=== PATIENT | male | born 1985 | race African-American/Black ===

== ENCOUNTER → 2018-08-25 | Outpatient (CLI) | payer OTHER ==
[2018-08-25 18:46] LABS: APPEARANCE,URINE CLEAR; BILIRUBIN,URINE NEGATIVE (NEGATIVE); COLOR,URINE YELLOW; GLUCOSE, URINE NEGATIVE (NEGATIVE); KETONES,URINE NEGATIVE (NEGATIVE); LEUKOCYTE ESTERASE,URINE NEGATIVE (NEGATIVE); NITRITE,URINE NEGATIVE (NEGATIVE); PROTEIN,URINE NEGATIVE (NEGATIVE); URINE SPECIFIC GRAVITY 1.014
[2018-08-25 20:02] LABS: CHLAM PCR NOT DETECTED (NOT DETECT); GON PCR NOT DETECTED (NOT DETECT)
== END ==
LOC: LAB 18:23
PROVIDERS: ATTEND Nurse Practitioner Family
DX: N34.2 Other urethritis (principal)
CPT/HCPCS: 81001; 87086; 87491; 87591

== ENCOUNTER 2018-08-31 20:50 | Emergency (ER) | payer OTHER ==
[2018-08-31 21:04] VITALS: BP 129/81
[2018-08-31 22:05] LABS: APPEARANCE,URINE CLEAR; BILIRUBIN,URINE NEGATIVE (NEGATIVE); COLOR,URINE YELLOW; GLUCOSE, URINE NEGATIVE (NEGATIVE); KETONES,URINE NEGATIVE (NEGATIVE); LEUKOCYTE ESTERASE,URINE NEGATIVE (NEGATIVE); NITRITE,URINE NEGATIVE (NEGATIVE); PROTEIN,URINE NEGATIVE (NEGATIVE); URINE SPECIFIC GRAVITY 1.015
--- NOTE | 2018-08-31 22:09 | ER Document Report ---
ED General - General Chief Complaint: Pain With Urination Stated Complaint: PAINFUL URINATION Time Seen by Provider: 08/31/18 21:40 Notes: Patient is a 33-year-old male without chronic medical problems, does have a history of pulmonary emboli in the past who presents with 3 weeks of intermittent dysuria. The patient has been seen both at the health department and urgent care, has been tested for urinary tract infections and sexually transmitted infections but she reports the results of which were normal. He states that he has been treated with 2 courses of antibiotics including doxycycline and amoxicillin without relief of his dysuria. He denies any penile or testicular discomfort, stating that the pain is only present with urination. Nothing seems to improve or worsen his symptoms. He denies a history of similar symptoms in the past. Denies fever or constitutional symptoms. TRAVEL OUTSIDE OF THE [place] IN LAST 30 DAYS: No - Related Data Allergies/Adverse Reactions: No Known Allergies Allergy (Unverified 05/16/17 15:58) Past Medical History - General Information source: Patient - Social History Smoking Status: Former Smoker Chew tobacco use (# tins/day): Yes Frequency of alcohol use: Social Drug Abuse: None Lives with: Spouse/Significant other Family History: Reviewed & Not Pertinent Patient has suicidal ideation: No Patient has homicidal ideation: No Renal/ Medical History: Denies: Hx Peritoneal Dialysis Review of Systems - Review of Systems Notes: Constitutional: Negative for fever. HENT: Negative for sore throat. Eyes: Negative for visual changes. Cardiovascular: Negative for chest pain. Respiratory: Negative for shortness of breath. Gastrointestinal: Negative for abdominal pain, vomiting or diarrhea. Genitourinary: Positive for dysuria. Musculoskeletal: Negative for back pain. Skin: Negative for rash. Neurological: Negative for headaches, weakness or numbness. 10 point ROS negative except as marked above and in HPI. Physical Exam - Vital signs Vitals: Temp Pulse Resp BP Pulse Ox 98.5 F 90 16 129/81 H 96 08/31/18 21:01 08/31/18 21:01 08/31/18 21:01 08/31/18 21:01 08/31/18 21:01 Interpretation: Normal Notes: PHYSICAL EXAMINATION: GENERAL: Well-appearing, well-nourished and in no acute distress. HEAD: Atraumatic, normocephalic. EYES: sclera anicteric, conjunctiva are normal. ENT: Moist mucous membranes. NECK: Normal range of motion LUNGS: Normal work of breathing HEART: 2+ radial pulses bilaterally : There appears to be an unrepaired anterior hypospadias. Uncircumcised penis. No epididymal tenderness. No testicular tenderness. Positive cremasteric reflex bilaterally. EXTREMITIES: no pitting or edema. No cyanosis. NEUROLOGICAL: No focal neurological deficits. Moves all extremities spontaneously and on command. PSYCH: Normal mood, normal affect. SKIN: Warm, Dry, normal turgor, no rashes or lesions noted. Course - Re-evaluation Re-evalutation: 08/31/18 22:06 Patient presents with 3 weeks of intermittent dysuria. He has had multiple outpatient urinalysis is as well as STI testing all of which have been unremarkable. He is active and treated with both amoxicillin and doxycycline with no significant relief of his symptoms. Patient on exam actually appears to have anterior hypospadias that has gone untreated. Patient states that his anatomy has always appeared this way but he has never sought treatment with the urologist. I suspect that this may be the cause of his symptoms, have advised close outpatient urology follow-up. Urinalysis and STI testing has been repeated here and I do not anticipate an infectious etiology given repeated previous normal tests as well as multiple courses of antibiotics without improvement. At this time will discharge with return precautions and follow-up recommendations. Verbal discharge instructions given a the bedside and opportunity for questions given. Medication warnings reviewed. Patient is in agreement with this plan and has verbalized understanding of return precautions and the need for primary care follow-up in the next 24-72 hours. - Vital Signs Vital signs: Temp Pulse Resp BP Pulse Ox 98.5 F 90 16 129/81 H 96 08/31/18 21:01 08/31/18 21:01 08/31/18 21:01 08/31/18 21:01 08/31/18 21:01 - Laboratory Laboratory results interpreted by me: 08/31/18 21:50 Urine Urobilinogen 2.0 H Discharge - Discharge Clinical Impression: Hypospadias, penile, Dysuria Condition: Good Disposition: HOME, SELF-CARE Additional Instructions: Please follow-up with urology at your earliest ability as your exam is suggestive of uncorrected hypospadias. Your previous urine and STI testing has been normal. Your urinalysis study tonight is normal as well. You will be contacted if your studies tonight are abnormal. Please return if you develop fever, worsening pain with urination, abdominal pain, or any other symptoms that are worrisome to you. Referrals: EMELYN PANDEY, ASSISTANT PRINCIPAL [Primary Care Provider] - Follow up as needed
[2018-08-31 23:29] LABS: CHLAM PCR NOT DETECTED (NOT DETECT); GON PCR NOT DETECTED (NOT DETECT)
== END 2018-08-31 22:20 | disposition home or self-care (01) ==
LOC: ER 20:50
DX: Q54.1 Hypospadias, penile (principal); R30.0 Dysuria
CPT/HCPCS: 81001; 87086; 87491; 87591; 99283

== ENCOUNTER 2019-02-24 15:59 | Emergency (ER) | payer OTHER ==
[2019-02-24 16:07] VITALS: BP 122/77
== END 2019-02-24 18:40 | disposition left against medical advice (07) ==
LOC: ER 15:59
DX: Z53.21 Procedure and treatment not carried out due to patient leaving prior to being seen by health care provider (principal); M79.659 Pain in unspecified thigh

== ENCOUNTER 2019-02-25 11:48 | Emergency (ER) | payer OTHER ==
--- NOTE | 2019-02-25 12:14 | ER Document Report ---
ED Medical Screen (RME) - General Chief Complaint: Leg Pain Stated Complaint: LEG PAIN Time Seen by Provider: 02/25/19 12:10 Primary Care Provider: EMELYN PANDEY NP [Primary Care Provider] - Follow up as needed TRAVEL OUTSIDE OF THE [place] IN LAST 30 DAYS: No - HPI Notes: 02/25/19 12:13 Patient is a 34-year-old male with a history of DVTs (he supposed to be on Xarelto, but has not been taking it for 1 year) who presents complaining of left medial upper leg pain and posterior knee pain that is described as a soreness and worsened with ambulation over the past week. Patient states that his pain feels similar to when he had blood clots before. He has no other concerns or complaints. Denies drug allergies. Denies MARTÍNEZ, fever, neck pain, URI, CP, SOB, Abd pain, dysuria, back pain, or rash. I have treated and performed a rapid initial assessment of this patient. A comprehensive ED assessment and evaluation of the patient, analysis of test results and completion of medical decision making process will be conducted by additional ED providers. PHYSICAL EXAMINATION: GENERAL: Well-appearing, well-nourished and in no acute distress. A&Ox4. Answers questions appropriately. LUNGS: Breath sounds clear to auscultation bilaterally and equal. No wheezes rales or rhonchi. HEART: Regular rate and rhythm without murmurs, rubs, gallops. Extremities: No cyanosis, clubbing, or edema b/l. No lower extremity asymmetry. Tenderness noted to the posterior popliteal area to palpation. Pulses 2+ bilaterally. Foot/leg warm. NEUROLOGICAL: Normal speech, normal gait. PSYCH: Normal mood, normal affect. - Related Data Allergies/Adverse Reactions: No Known Allergies Allergy (Verified 02/25/19 12:12) Past Medical History - Social History Frequency of alcohol use: Social Drug Abuse: None Renal/ Medical History: Denies: Hx Peritoneal Dialysis Physical Exam - Vital signs Vitals: Temp Pulse Resp BP Pulse Ox 98.2 F 80 18 148/84 H 96 02/25/19 11:50 02/25/19 11:50 02/25/19 11:50 02/25/19 11:50 02/25/19 11:50 Course - Vital Signs Vital signs: Temp Pulse Resp BP Pulse Ox 98.2 F 80 18 148/84 H 96 02/25/19 11:50 02/25/19 11:50 02/25/19 11:50 02/25/19 11:50 02/25/19 11:50 Doctor's Discharge - Discharge Referrals: EMELYN PANDEY, SALESPERSON [employer]ITURE [Primary Care Provider] - Follow up as needed
[2019-02-25 12:41] LABS: INTERNATIONAL RATION (INR) 0.99; PROTHROMBIN TIME 13.6 SEC (11.4-15.4)
[2019-02-25 12:42] LABS: PARTIAL THROMBOPLASTIN TIME 30.2 SEC (23.5-35.8)
[2019-02-25 12:43] LABS: ABSOLUTE BASOPHILS # (AUTO) 0.1 10^3/uL (0.0-0.2); ABSOLUTE EOSINOPHILS # (AUTO) 0.2 10^3/uL (0.0-0.6); ABSOLUTE LYMPHOCYTES (AUTO) 1.8 10^3/uL (0.5-4.7); ABSOLUTE MONOCYTES (AUTO) 0.4 10^3/uL (0.1-1.4); ABSOLUTE NEUT (AUTO) 2.5 10^3/uL (1.7-8.2); BASOPHILS % (AUTO) 1.1 % (0-2); EOSINOPHILS % (AUTO) 3.1 % (0-6); HEMATOCRIT 44.9 % (37.9-51.0); HEMOGLOBIN 15.2 g/dL (13.5-17.0); LYMPHOCYTES % (AUTO) 36.4 % (13-45); MEAN CORPUSCULAR HEMOGLOBIN 29.3 pg (27.0-33.4); MEAN CORPUSCULAR HGB CONC 33.7 g/dL (32.0-36.0); MEAN CORPUSCULAR VOLUME 87 fl (80-97); MONOCYTES % (AUTO) 8.7 % (3-13); PLATELET COUNT 158 10^3/uL (150-450); RED BLOOD COUNT 5.17 10^6/uL (4.35-5.55); RED CELL DISTRIBUTION WIDTH 12.9 % (11.5-14.0); SEGMENTED NEUTROPHILS % (AUTO) 50.7 % (42-78); TOTAL CELLS COUNTED % (AUTO) 100 %
[2019-02-25 13:01] LABS: ANION GAP 9 (5-19); BLOOD UREA NITROGEN 8 mg/dL (7-20); CALCIUM 9.6 mg/dL (8.4-10.2); CARBON DIOXIDE 31 mmol/L (22-30); CHLORIDE 100 mmol/L (98-107); GLUCOSE 102 mg/dL (75-110); POTASSIUM 4.3 mmol/L (3.6-5.0); SODIUM 140.2 mmol/L (137-145)
--- NOTE | 2019-02-25 14:32 | RADIOLOGY REPORT (SQ) ---
EXAM DESCRIPTION: VENOUS UNILATERAL LOWER COMPLETED DATE/TIME: 02/25/2019 1:55 pm REASON FOR STUDY: Lt leg pain, h/o DVT COMPARISON: None. TECHNIQUE: Dynamic and static rosas scale and color images acquired of the left leg venous system. Se lected spectral images acquired with additional compression and augmentation maneuvers. The contralat eral common femoral vein and saphenofemoral junction were also imaged. Images stored on PACS. LIMITATIONS: None. FINDINGS: COMMON FEMORAL: Normal phasicity, compression and augmentation. No visualized echogenic ma terial on rosas scale. No defects on color images. FEMORAL: Occlusive thrombus extends from the proximal femoral vein down into the popliteal vein. Th e thrombus characteristics suggest chronic changes. The patient stated that he has stopped his antic oagulation medication. CALF VESSELS: Normal compression, augmentation. No visualized echogenic material on rosas scale. No de fects on color images. GSV and SSV: The greater saphenous vein demonstrates normal compression, augmentation. No visualized echogenic material on rosas scale. No defects on color images. Subacute to chronic thrombus within the superficial saphenous vein. ANY DEEP VENOUS INSUFFICIENCY: Not evaluated. ANY EVIDENCE OF POPLITEAL CYST: No. OTHER: No other significant finding. CONTRALATERAL COMMON FEMORAL VEIN AND SAPHENOFEMORAL JUNCTION: Normal phasicity, compression and augmentation. No visualized echogenic material on rosas scale. No de fects on color images. IMPRESSION: 1. Positive examination. The patient states that he stop taking his anticoagulation me dication. Occlusive thrombus is identified from the proximal femoral vein down into the popliteal ve in. The ultrasound characteristics suggest chronic changes. 2. Subacute to chronic thrombus within the superficial saphenous vein. These findings represent sup erficial thrombophlebitis. COMMENT: 1. The results of this examination were discussed with emergency department provider on 07/2019 at 14:28 hours. TECHNICAL DOCUMENTATION: JOB ID: [id number] [employer]- All Rights Reserved Reading location - IP/workstation name: [email or web address]
[2019-02-25] MEDS ORDERED: RIVAROXABAN 15 MG TABLET PO ONE (14:50)
--- NOTE | 2019-02-25 14:52 | ER Document Report ---
ED General - General Chief Complaint: Leg Pain Stated Complaint: LEG PAIN Time Seen by Provider: 02/25/19 12:10 Primary Care Provider: EMELYN PANDEY NP [NO LOCAL MD] - Follow up in 1 week Mode of Arrival: Ambulatory Information source: Patient Notes: Patient presents emergency department with complaints of left leg ache for about a week.. Reports history of DVT has not been taking Xarelto in over a year. Reports he had a DVT with PE when he was in the . He reports he thought he was better so that is why did not get the Xarelto renewed. Denies trauma. Reports 3 to 4 weeks ago he drove to [place] and back. Denies other symptoms such as fever vomiting diarrhea. TRAVEL OUTSIDE OF THE [place] IN LAST 30 DAYS: No - HPI Onset: Last week Onset/Duration: Persistent Quality of pain: Achy Severity: Severe Pain Level: 4 Associated symptoms: None Exacerbated by: Denies Relieved by: Denies Similar symptoms previously: Yes Recently seen / treated by doctor: No - Related Data Allergies/Adverse Reactions: No Known Allergies Allergy (Verified 02/25/19 12:12) Past Medical History - General Information source: Patient - Social History Smoking Status: Never Smoker Frequency of alcohol use: Social Drug Abuse: None Lives with: Family Family History: Reviewed & Not Pertinent Patient has suicidal ideation: No Patient has homicidal ideation: No - Past Medical History Cardiac Medical History: Reports: Hx DVT, Hx Pulmonary Embolism Renal/ Medical History: Denies: Hx Peritoneal Dialysis Surgical Hx: Negative Review of Systems - Review of Systems Notes: Review HPI for review of systems., All other systems negative Physical Exam - Vital signs Vitals: Temp Pulse Resp BP Pulse Ox 98.2 F 80 18 148/84 H 96 02/25/19 11:50 02/25/19 11:50 02/25/19 11:50 02/25/19 11:50 02/25/19 11:50 - Notes Notes: PHYSICAL EXAMINATION: GENERAL: Well-appearing and in no acute distress HEAD: Atraumatic, normocephalic. EYES: extraocular movements intact, sclera anicteric, conjunctiva are normal. ENT: nares patent, Moist mucous membranes. NECK: Normal range of motion, supple without lymphadenopathy LUNGS: CTAB and equal. No wheezes rales or rhonchi. HEART: Regular rate and rhythm without murmurs ABDOMEN: Soft, no tenderness. No guarding, no rebound EXTREMITIES: Normal range of motion, no pitting edema. No cyanosis. no obvious swelling, no erythema, no warmth, positive homans to medial left leg NEUROLOGICAL: Cranial nerves grossly intact. Normal sensory/motor exams. PSYCH: Normal mood, normal affect. SKIN: Warm, Dry, normal turgor, no rashes or lesions noted Course - Re-evaluation Re-evalutation: 02/25/19 Was unremarkable. Doppler shows thrombosis femoral to popliteal. Also shows superficial phlebitis. Patient was instructed on results. Patient was instructed on Xarelto and the importance of follow-up with the primary care provider. Patient reports he does have insurance he will check who is available it within his network. Consulted who agrees with plan for dc home with xarelto. Dictation of this chart was performed using voice recognition software; therefore, there may be some unintended grammatical errors. - Vital Signs Vital signs: Temp Pulse Resp BP Pulse Ox 98.5 F 71 18 138/83 H 99 02/25/19 15:04 02/25/19 15:04 02/25/19 15:04 02/25/19 15:04 02/25/19 15:04 - Laboratory Result Diagrams: 02/25/19 12:22 02/25/19 12:22 Laboratory results interpreted by me: 02/25/19 12:22 Carbon Dioxide 31 H - Diagnostic Test Radiology reviewed: Image reviewed, Reports reviewed - EXAM DESCRIPTION: VENOUS UNILATERAL LOWER COMPLETED DATE/TIME: 02/25/2019 1:55 pm REASON FOR STUDY: Lt leg pain, h/o DVT COMPARISON: None. TECHNIQUE: Dynamic and static rosas scale and color images acquired of the left leg venous system. Selected spectral images acquired with additional compression and augmentation maneuvers. The contralateral common femoral vein and saphenofemoral junction were also imaged. Images stored on PACS. LIMITATIONS: None. FINDINGS: COMMON FEMORAL: Normal phasicity, compression and augmentation. No visualized echogenic material on rosas scale. No defects on color images. FEMORAL: Occlusive thrombus extends from the proximal femoral vein down into the popliteal vein. The thrombus characteristics suggest chronic changes. The patient stated that he has stopped his anticoagulation medication. CALF VESSELS: Normal compression, augmentation. No visualized echogenic material on rosas scale. No defects on color images. GSV and SSV: The greater saphenous vein demonstrates normal compression, augmentation. No visualized echogenic material on rosas scale. No defects on color images. Subacute to chronic thrombus within the superficial saphenous vein. ANY DEEP VENOUS INSUFFICIENCY: Not evaluated. ANY EVIDENCE OF POPLITEAL CYST: No. OTHER: No other significant finding. CONTRALATERAL COMMON FEMORAL VEIN AND SAPHENOFEMORAL JUNCTION: Normal phasicity, compression and augmentation. No visualized echogenic material on rosas scale. No defects on color images. IMPRESSION: 1. Positive examination. The patient states that he stop taking his anticoagulation medication. Occlusive thrombus is identified from the proximal femoral vein down into the popliteal vein. The ultrasound characteristics suggest chronic changes. 2. Subacute to chronic thrombus within the superficial saphenous vein. These findings represent superficial thrombophlebitis. COMMENT: 1. The results of this examination were discussed with emergency department provider on 02/25/2019 at 14:28 hours. Discharge - Discharge Clinical Impression: Deep vein thrombosis of left lower extremity Qualifiers: Affected thrombotic vein of extremity: femoral Chronicity: unspecified Qualified Code(s): I82.412 - Acute embolism and thrombosis of left femoral vein Condition: Stable Disposition: HOME, SELF-CARE Instructions: DVT Outpatient Treatment ([facility]), Family Physicians / Practices Additional Instructions: *You have been treated for left leg pain, deep vein thrombosis, superficial thrombophlebitis *Take medication as prescribed *Monitor your leg for worsening signs such as increased pain, redness, swelling *apply warm packs as indicated for pain *Follow up with a primary care provider within one week for recheck *Return to ED for worsening condition, changes, needs Monitor your blood pressure. Your blood pressure was elevated today. This may be because you were anxious, in pain or because you need medication. It is important to follow up with your primary care provider for full evaluation. Prescriptions: Rivaroxaban [Xarelto 15 mg Tablet] 15 mg PO BID #42 tablet Forms: Elevated Blood Pressure, Return to Work Referrals: EMELYN PANDEY NP [NO LOCAL MD] - Follow up in 1 week
[2019-02-25 15:07] VITALS: BP 138/83
== END 2019-02-25 15:19 | disposition home or self-care (01) ==
LOC: ER 11:48
DX: I82.412 Acute embolism and thrombosis of left femoral vein (principal); M79.605 Pain in left leg; Z86.718 Personal history of other venous thrombosis and embolism
CPT/HCPCS: 36415; 80048; 85025; 85610; 85730; 93971; 99284

== ENCOUNTER 2019-07-14 10:55 | Emergency (ER) | payer OTHER ==
--- NOTE | 2019-07-14 11:44 | ER Document Report ---
ED Medical Screen (RME) - General Chief Complaint: Shortness Of Breath Stated Complaint: SHORTNESS OF BREATH Time Seen by Provider: 07/14/19 11:37 Primary Care Provider: QUITA VAZQUEZ [Primary Care Provider] - Follow up as needed Notes: Patient is a 34-year-old male who presents to the emergency department with a chief complaint of shortness of breath. He has been short of breath since February of this year. He is currently on Xarelto, but according to his primary care provider Oneyda Booker, the patient has not been very compliant with his Xarelto. He has history of DVTs and that is why he is on Xarelto. Exam: S1, S2. Lung sounds clear to auscultation. I have greeted and performed a rapid initial assessment of this patient. A comprehensive ED assessment and evaluation of the patient, analysis of test resu lts and completion of medical decision making process will be conducted by an additional ED providers. TRAVEL OUTSIDE OF THE [place] IN LAST 30 DAYS: No - Related Data Allergies/Adverse Reactions: No Known Allergies Allergy (Verified 02/25/19 12:12) Past Medical History - Past Medical History Cardiac Medical History: Reports: Hx DVT, Hx Pulmonary Embolism Renal/ Medical History: Denies: Hx Peritoneal Dialysis Physical Exam - Vital signs Vitals: Temp Pulse Resp BP Pulse Ox 98.0 F 74 18 126/77 H 95 07/14/19 11:05 07/14/19 11:05 07/14/19 11:05 07/14/19 11:05 07/14/19 11:05 Course - Vital Signs Vital signs: Temp Pulse Resp BP Pulse Ox 98.0 F 74 18 126/77 H 95 07/14/19 11:05 07/14/19 11:05 07/14/19 11:05 07/14/19 11:05 07/14/19 11:05 Doctor's Discharge - Discharge Referrals: TAYLOR,QIUTA [Primary Care Provider] - Follow up as needed
[2019-07-14 12:22] LABS: ABSOLUTE EOSINOPHILS # (AUTO) 0.1 10^3/uL (0.0-0.6); ABSOLUTE LYMPHOCYTES (AUTO) 2.4 10^3/uL (0.5-4.7); ABSOLUTE MONOCYTES (AUTO) 0.4 10^3/uL (0.1-1.4); ABSOLUTE NEUT (AUTO) 1.8 10^3/uL (1.7-8.2); BASOPHILS % (AUTO) 0.7 % (0-2); EOSINOPHILS % (AUTO) 1.6 % (0-6); HEMATOCRIT 46.4 % (37.9-51.0); HEMOGLOBIN 15.5 g/dL (13.5-17.0); MEAN CORPUSCULAR HEMOGLOBIN 29.3 pg (27.0-33.4); MEAN CORPUSCULAR HGB CONC 33.5 g/dL (32.0-36.0); MEAN CORPUSCULAR VOLUME 88 fl (80-97); MONOCYTES % (AUTO) 8.5 % (3-13); PLATELET COUNT 213 10^3/uL (150-450); RED CELL DISTRIBUTION WIDTH 14.2 % (11.5-14.0); SEGMENTED NEUTROPHILS % (AUTO) 38.2 % (42-78); TOTAL CELLS COUNTED % (AUTO) 100 %; WHITE BLOOD COUNT 4.7 10^3/uL (4.0-10.5)
--- NOTE | 2019-07-14 12:25 | RADIOLOGY REPORT (SQ) ---
EXAM DESCRIPTION: CHEST 2 VIEWS COMPLETED DATE/TIME: 07/14/2019 12:15 pm REASON FOR STUDY: shortness of breath COMPARISON: None. EXAM PARAMETERS: NUMBER OF VIEWS: two views TECHNIQUE: Digital Frontal and Lateral radiographic views of the chest acquired. RADIATION DOSE: NA LIMITATIONS: none FINDINGS: LUNGS AND PLEURA: No opacities, masses or pneumothorax. No pleural effusion. MEDIASTINUM AND HILAR STRUCTURES: No masses or contour abnormalities. HEART AND VASCULAR STRUCTURES: Heart normal size. No evidence for failure. BONES: No acute findings. HARDWARE: None in the chest. OTHER: No other significant finding. IMPRESSION: NO ACUTE RADIOGRAPHIC FINDING IN THE CHEST. TECHNICAL DOCUMENTATION: JOB ID: [id number] [employer]- All Rights Reserved Reading location - IP/workstation name: [email or web address]
[2019-07-14 12:36] LABS: INTERNATIONAL RATION (INR) 1.44; PROTHROMBIN TIME 17.7 SEC (11.4-15.4)
[2019-07-14 12:37] LABS: ALBUMIN 4.1 g/dL (3.5-5.0); ALKALINE PHOSPHATASE 58 U/L (38-126); ANION GAP 8 (5-19); ASPARTATE AMINO TRANSFERASE 24 U/L (17-59); BILIRUBIN,DIRECT 0.2 mg/dL (0.0-0.4); BILIRUBIN,TOTAL 1.2 mg/dL (0.2-1.3); BLOOD UREA NITROGEN 10 mg/dL (7-20); CALCIUM 9.5 mg/dL (8.4-10.2); CARBON DIOXIDE 26 mmol/L (22-30); CHLORIDE 107 mmol/L (98-107); GLUCOSE 91 mg/dL (75-110); PARTIAL THROMBOPLASTIN TIME 34.4 SEC (23.5-35.8); POTASSIUM 4.4 mmol/L (3.6-5.0); TOTAL PROTEIN 7.6 g/dL (6.3-8.2)
--- NOTE | 2019-07-14 14:29 | ER Document Report ---
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 Patient was evaluated earlier in February and placed on Xarelto for DVT. He reports he is not been very compliant with his Xarelto. He reports he just feels short of breath every now and then. He does go to [place] who told him to come to the emergency department for concerns. He denies fever vomiting diarrhea. Denies chest pain. Patient is speaking in clear voice respiratory rate even unlabored. He denies cough. TRAVEL OUTSIDE OF THE [place] IN LAST 30 DAYS: No - HPI Onset: Other - February Onset/Duration: Waxing and waning Quality of pain: No pain Associated symptoms: None Exacerbated by: Denies Relieved by: Denies Similar symptoms previously: Yes Recently seen / treated by doctor: Yes - Related Data Allergies/Adverse Reactions: No Known Allergies Allergy (Verified 02/25/19 12:12) Past Medical History - General Information source: Patient - Social History Smoking Status: Never Smoker Chew tobacco use (# tins/day): No Frequency of alcohol use: None Drug Abuse: None Family History: Reviewed & Not Pertinent Patient has suicidal ideation: No Patient has homicidal ideation: No - Past Medical History Cardiac Medical History: Reports: Hx DVT, Hx Pulmonary Embolism Renal/ Medical History: Denies: Hx Peritoneal Dialysis Surgical Hx: Negative Review of Systems - Review of Systems Notes: Review HPI for review of systems., All other systems negative Physical Exam - Vital signs Vitals: Temp Pulse Resp BP Pulse Ox 98.0 F 74 18 126/77 H 95 07/14/19 11:05 07/14/19 11:05 07/14/19 11:05 07/14/19 11:05 07/14/19 11:05 - Notes Notes: PHYSICAL EXAMINATION: GENERAL: Well-appearing and in no acute distress HEAD: Atraumatic, normocephalic. EYES: Pupils equal round extraocular movements intact, sclera anicteric, conjunctiva are normal. ENT: nares patent, Moist mucous membranes. NECK: Normal range of motion, supple without lymphadenopathy LUNGS: CTAB and equal. No wheezes rales or rhonchi. HEART: Regular rate and rhythm without murmurs ABDOMEN: Soft, no tenderness. No guarding, no rebound EXTREMITIES: Normal range of motion, no pitting edema. No cyanosis. NEUROLOGICAL: Cranial nerves grossly intact. PSYCH: Normal mood, normal affect. SKIN: Warm, Dry, normal turgor, no rashes or lesions noted Course - Re-evaluation Re-evalutation: 07/14/19 14:32 This 34-year-old male presents emergency department with shortness of breath since February. Has history of DVTs was placed on Xarelto back in February for DVT. Reports he sometimes feels like he cannot get a deep breath. Denies chest pain. Denies fever vomiting diarrhea. Labs are unremarkable chest x-ray is negative. Respiratory rate is even unlabored patient speaking in a clear voice. No recent trips. Patient looks and sounds good. [facility] continue to take Xarelto as prescribed 07/14/19 12:05 07/14/19 12:05 MCV 88 fl (80-97) 07/14/19 12:05 MCH 29.3 pg (27.0-33.4) 07/14/19 12:05 MCHC 33.5 g/dL (32.0-36.0) 07/14/19 12:05 RDW 14.2 % (11.5-14.0) H 07/14/19 12:05 Seg Neutrophils % 38.2 % (42-78) L 07/14/19 12:05 Chloride 107 mmol/L (98-107) 07/14/19 12:05 Carbon Dioxide 26 mmol/L (22-30) 07/14/19 12:05 Anion Gap 8 (5-19) 07/14/19 12:05 Est GFR ( Amer) > 60 (>60) 07/14/19 12:05 Glucose 91 mg/dL (75-110) 07/14/19 12:05 Calcium 9.5 mg/dL (8.4-10.2) 07/14/19 12:05 Total Bilirubin 1.2 mg/dL (0.2-1.3) 07/14/19 12:05 AST 24 U/L (17-59) 07/14/19 12:05 Alkaline Phosphatase 58 U/L (38-126) 07/14/19 12:05 Total Protein 7.6 g/dL (6.3-8.2) 07/14/19 12:05 Albumin 4.1 g/dL (3.5-5.0) 07/14/19 12:05 Chest X-Ray 07/14/19 11:43 IMPRESSION: NO ACUTE RADIOGRAPHIC FINDING IN THE CHEST. - Vital Signs Vital signs: Temp Pulse Resp BP Pulse Ox 97.7 F 71 71 H 139/67 H 99 07/14/19 15:16 07/14/19 15:16 07/14/19 15:16 07/14/19 15:16 07/14/19 15:16 - Laboratory Result Diagrams: 07/14/19 12:05 07/14/19 12:05 Laboratory results interpreted by me: 07/14/19 07/14/19 07/14/19 12:05 12:05 12:05 RDW 14.2 H Lymph % (Auto) 51.0 H Seg Neutrophils % 38.2 L PT 17.7 H Creatinine 1.28 H - Diagnostic Test Radiology reviewed: Image reviewed, Reports reviewed - EKG Interpretation by Ms EKG shows normal: Sinus rhythm Rate: Normal Rhythm: NSR Additional EKG results interpreted by me: 07/14/19 15:[address] elevation no T wave inversion Discharge - Discharge Clinical Impression: Shortness of breath Condition: Stable Disposition: HOME, SELF-CARE Additional Instructions: *You have been evaluated for shortness of breath *Take your medication as prescribed *[facility] *Return to ED for increasing shortness of breath, worsening condition, changes, needs Monitor your blood pressure. Your blood pressure was elevated today. This may be because you were anxious, in pain or because you need medication. It is important to follow up with your primary care provider for full evaluation. Forms: Elevated Blood Pressure Referrals: [facility] [Primary [facility]] - Follow up in 3-5 days
[2019-07-14 15:17] VITALS: BP 139/67
--- NOTE | 2019-07-14 19:50 | EKG REPORT ---
SEVERITY:- BORDERLINE ECG - SINUS RHYTHM LEFT AXIS DEVIATION BORDERLINE T ABNORMALITIES, ANTERIOR LEADS : Confirmed by: Serafin Carvajal MD 14-Jul-2019 19:49:54
== END 2019-07-14 15:17 | disposition home or self-care (01) ==
LOC: ER 10:55
DX: R06.02 Shortness of breath (principal); I82.409 Acute embolism and thrombosis of unspecified deep veins of unspecified lower extremity; Z91.14 Patient's other noncompliance with medication regimen; Z86.711 Personal history of pulmonary embolism
CPT/HCPCS: 36415; 71046; 80053; 85025; 85610; 85730; 93005; 93010; 99285